=== PATIENT | male | born 1955 | race Caucasian/White ===

== ENCOUNTER → 2018-02-01 | Outpatient (CLI) | payer BC, OTHER ==
--- NOTE | 2018-02-01 17:24 | Diagnostic Imaging Report ---
PROCEDURE:X-RAY LEFT KNEE, THREE OR MORE VIEWS COMPARISON:None. INDICATIONS:LEFT KNEE PAIN FINDINGS: Normal mineralization. No acute displaced fracture or dislocation. No lytic or blastic lesions. Joint spaces are relatively well-preserved. Minimal osteophytosis of the patella No osteochondral lesion. Trace suprapatellar effusion. CONCLUSION: No acute abnormalities. Minimal osteophytosis of the patella. Trace suprapatellar effusion. Hank Ambrocio M.D. Dictated by: Hank Ambrocio M.D. on 02/01/2018 at 17:26 Electronically approved by: Hank Ambrocio M.D. on 02/01/2018 at 17:26
== END ==
LOC: MRI 15:22
PROVIDERS: ATTEND Family Medicine
DX: M25.562 Pain in left knee (principal)

== ENCOUNTER → 2018-02-09 | Outpatient (CLI) | payer BC ==
--- NOTE | 2018-02-09 18:51 | Diagnostic Imaging Report ---
TECHNIQUE: Magnetic resonance imaging of the LEFT KNEE was performed WITHOUT injected contrast. HISTORY: Instability, felt pop, behind knee COMPARISON: Left knee radiographs February 01, 2018 FINDINGS: LIGAMENTS AND TENDONS: ACL: Intact PCL: Intact Collateral ligaments: Intact Iliotibial band: Unremarkable Popliteal tendon: Intact Extensor mechanism: Intact JOINT: Menisci: Medial: Complex tearing and attenuation near the posterior root attachment. Minimal free margin tearing of the posterior horn. Lateral: Intact Articular Cartilage: Medial Compartment: Low-grade erosion of the weightbearing cartilage. Lateral Compartment: No focal defect. Patellofemoral Compartment: Full-thickness erosion at the patellar apex and adjacent facets. Joint Fluid: Mild synovitis with associated trace nonspecific effusion and a minimally distended Vital's cyst. BONES: No focal or infiltrative bone marrow replacing abnormality. No acute fracture. SOFT TISSUES: Minimal superficial soft tissue edema. IMPRESSION: 1. Patellofemoral compartment predominant osteoarthrosis. 2. Degenerative tearing of the medial meniscus. 3. Reactive synovitis with associated trace joint effusion and minimally distended Vital's cyst. Signed by: Dr. Fabio Wilcox D.O., M.M.M. on 02/09/2018 6:47 PM
== END ==
LOC: MRI 17:36
PROVIDERS: ATTEND Family Medicine
DX: M23.52 Chronic instability of knee, left knee (principal)